=== PATIENT | male | born 1970 | race Caucasian/White ===

== ENCOUNTER 2020-07-29 10:31 | Emergency (ER) | payer BC ==
[~2020-07-29 10:31] MED LIST: EQL IBUPROFEN200 MG PO; KEFLEX500 MG PO; MAXEPA1000 M1 PO; NO HOME MEDS; SILVADENE1 % TOP; TET/DIP TOX1 ML IM; VITAMIN B 6100 MG PO
[2020-07-29] MEDS ORDERED: MELOXICAM7.5 MG PO (10:51)
[2020-07-29 12:18] LABS: HEMATOCRIT 50.2 % (39.0-50.0); HEMOGLOBIN 16.2 g/dl (14.0-18.0); IMMATURE GRANULOCYTES 0.2 % (0.0-5.0); MEAN CELL VOLUME 90.1 fL CALC (80.0-100.0); MEAN CORPUSCULAR HGB 29.1 pG CALC (26.0-32.0); MEAN CORPUSCULAR HGB CONC 32.3 g/dL CAL (32.0-36.0); NEUT# 2.76 thou/uL (1.82-7.42); RED BLOOD COUNT 5.57 mill/uL (4.70-6.10); RED CELL DISTRI WIDTH 13.1 % (11.5-15.5)
[2020-07-29 12:24] LABS: ALBUMIN 4.4 g/dL (3.2-5.0); ALKALINE PHOSPHATASE 83 u/l (38-126); AMYLASE 58 u/l (30-110); ANION GAP 12 (6-22 (CALC)); BUN 11 mg/dL (9-20); BUN/CREATININE RATIO 11 (12-20 (CALC)); CARBON DIOXIDE 25 mmol/l (22-30); CHLORIDE 102 mmol/l (95-108); GFR > 60 ML/MIN (>=60 (CALC)); GFR FOR AFR.AMER. > 60 ML/MIN (>=60 (CALC)); LIPASE 70 u/l (23-300); POTASSIUM 4.1 mmol/l (3.5-5.1); SGOT/AST 43 u/l (17-59); SODIUM 135 mmol/l (137-146); TOTAL PROTEIN 7.2 g/dL (6.3-8.2)
[2020-07-29 12:30] LABS: BILIRUBIN, TOTAL 0.8 mg/dL (0.0-1.4)
[2020-07-29 12:36] LABS: MYOGLOBIN 73 ng/mL (0 - 121)
[2020-07-29 13:49] VITALS: BP 150/90
== END 2020-07-29 13:51 | disposition short-term general hospital (02) | DRG 282 ==
LOC: ED 10:31
PROVIDERS: Emergency Medicine
DX: I21.4 Non-ST elevation (NSTEMI) myocardial infarction (principal); F17.200 Nicotine dependence, unspecified, uncomplicated
CPT/HCPCS: J1644

== ENCOUNTER 2020-08-23 09:56 | Emergency (ER) | payer BC ==
[~2020-08-23 09:56] MED LIST changes: +MELOXICAM7.5 MG PO
[2020-08-23 10:29] LABS: HEMATOCRIT 39.5 % (39.0-50.0); HEMOGLOBIN 12.3 g/dl (14.0-18.0); IMMATURE GRANULOCYTES 0.2 % (0.0-5.0); MEAN CELL VOLUME 91.2 fL CALC (80.0-100.0); MEAN CORPUSCULAR HGB 28.4 pG CALC (26.0-32.0); MEAN CORPUSCULAR HGB CONC 31.1 g/dL CAL (32.0-36.0); RED BLOOD COUNT 4.33 mill/uL (4.70-6.10); RED CELL DISTRI WIDTH 13.1 % (11.5-15.5)
[2020-08-23 10:41] LABS: ALKALINE PHOSPHATASE 120 u/l (38-126); ANION GAP 11 (6-22 (CALC)); BILIRUBIN, TOTAL 0.9 mg/dL (0.0-1.4); BUN 13 mg/dL (9-20); BUN/CREATININE RATIO 17 (12-20 (CALC)); CARBON DIOXIDE 30 mmol/l (22-30); CHLORIDE 98 mmol/l (95-108); CREATININE 0.8 mg/dL (0.7-1.3); GFR > 60 ML/MIN (>=60 (CALC)); GFR FOR AFR.AMER. > 60 ML/MIN (>=60 (CALC)); SGOT/AST 24 u/l (17-59); SODIUM 134 mmol/l (137-146); TOTAL PROTEIN 7.7 g/dL (6.3-8.2)
[2020-08-23] MEDS ORDERED: TRAMADOL HCL50 MG PO (11:28)
[2020-08-23] MEDS ORDERED: ATORVASTATIN CA80 MG PO (11:29)
[2020-08-23] MEDS ORDERED: METOPROL TAR25 MG PO (11:29)
[2020-08-23] MEDS ORDERED: AMOX/K CLAV875 M1 PO (12:23)
[2020-08-23] MEDS ORDERED: ZPAK PO (12:23)
[2020-08-23 12:40] VITALS: BP 125/76
== END 2020-08-23 12:41 | disposition home or self-care (01) | DRG 195 ==
LOC: ED 09:56
PROVIDERS: Family Medicine
DX: J18.9 Pneumonia, unspecified organism (principal); I10 Essential (primary) hypertension; Z95.1 Presence of aortocoronary bypass graft; Z20.822 Contact with and (suspected) exposure to COVID-19
CPT/HCPCS: Q9967